=== PATIENT | male | born 1965 ===

== ENCOUNTER → 2021-03-02 06:17 | Outpatient (CLI) | payer OTHER ==
[~2021-03-02 06:17] MED LIST: GRALISE600 MG PO; ULTRAM50 MG PO; VALSARTAN80 MG PO
== END | disposition home or self-care (01) ==
LOC: LAB 06:17
PROVIDERS: ATTEND Orthopaedic Surgery
DX: I10 Essential (primary) hypertension (principal); D64.89 Other specified anemias; E88.89 Other specified metabolic disorders; D68.8 Other specified coagulation defects; N39.0 Urinary tract infection, site not specified; Z22.322 Carrier or suspected carrier of Methicillin resistant Staphylococcus aureus; I49.8 Other specified cardiac arrhythmias; Z76.89 Persons encountering health services in other specified circumstances

== ENCOUNTER 2021-03-16 05:30 | Day surgery (SDC) | payer OTHER | END 2021-03-16 12:00 | disposition home or self-care (01) | LOC: CIR.AMB 05:30 | PROVIDERS: ATTEND Orthopaedic Surgery | DX: M77.11 Lateral epicondylitis, right elbow (principal); M65.831 Other synovitis and tenosynovitis, right forearm; Z20.822 Contact with and (suspected) exposure to COVID-19 | CPT/HCPCS: 24344; 24071; 24359; C1776 ==